=== PATIENT | female | born 1965 | race Caucasian/White ===

== ENCOUNTER 2022-07-20 07:34 | Outpatient (REF) | payer OTHER, SELFPAY ==
[2022-07-20 13:48] LABS: MANUAL DIFF FLAG NO
[2022-07-20 13:53] LABS: Basophils Percent Auto 0.5 % (0-2); Eosinophils Percent Auto 0.7 % (0-4); Hematocrit 35.7 % (37.0-47.0); Hemoglobin 12.1 g/dl (12.0-16.0); Imm Gran Abs Auto 0.01 X10*3/uL (0.00-0.03); Imm Gran Pct Auto 0.2 % (0.0-0.4); Lymphocytes Absolute Auto 2.1 X10*3/uL (1.2-4.9); Lymphocytes Percent Auto 37.6 % (20-40); Mean Corpuscular HGB Conc 33.9 g/dl (31.0-35.0); Mean Corpuscular Hemoglobin 29.6 pg (27.0-33.0); Mean Corpuscular Volume 87.3 fL (80.0-98.0); Mean Platelet Volume 9.2 fL (9.4-12.3); Monocytes Absolute Auto 0.4 X10*3/uL (0.1-1.2); Platelet Count 327 X10*3/uL (160-400); Red Blood Count 4.09 X10*6/uL (4.20-5.50); Red Cell Distribution Width 11.8 % (11.0-16.0); White Blood Count 5.6 X10*3/uL (4.8-10.8)
[2022-07-20 14:09] LABS: Iron 82 mcg/dL (30-160); Percent Iron Saturation 22 % (15-50); Total Iron Binding Capacity 366 mcg/dL (228-428); Unsaturated Iron Binding 284 ug/dL
[2022-07-20 14:11] LABS: Estimated Average Glucose 100 mg/dL; Hemoglobin A1c % 5.1 %
[2022-07-20 14:30] LABS: Ferritin 56 ng/mL (10-250); TSH reflex Free T4 0.05 uIU/mL (0.32-4.0)
[2022-07-20 15:02] LABS: Folate > 20.0 ng/mL (> or = 4.0); Vitamin B12 459 pg/mL (200-900)
[2022-07-20 15:08] LABS: Free T4 (Free Thyroxine) 1.49 ng/dL (0.71-1.85)
== END 2022-07-20 07:35 | disposition home or self-care (01) ==
LOC: HO.LAB 07:34
PROVIDERS: PCP Physician Assistant; Visit Provider Physician Assistant
DX: R23.3 Spontaneous ecchymoses (principal); E03.9 Hypothyroidism, unspecified; Z68.33 Body mass index [BMI] 33.0-33.9, adult
CPT/HCPCS: 36415; 82607; 82728; 82746; 83036; 83540; 84439; 84443; 85025

== ENCOUNTER 2023-03-09 07:39 | Outpatient (REF) | payer OTHER, SELFPAY ==
[2023-03-09 08:08] LABS: MANUAL DIFF FLAG NO
[2023-03-09 08:18] LABS: Basophils Percent Auto 0.8 % (0-2); Eosinophils Absolute Auto 0.1 X10*3/uL (0.0-0.4); Eosinophils Percent Auto 2.4 % (0-4); Hematocrit 37.6 % (37.0-47.0); Hemoglobin 12.6 g/dl (12.0-16.0); Imm Gran Abs Auto 0.01 X10*3/uL (0.00-0.03); Imm Gran Pct Auto 0.2 % (0.0-0.4); Lymphocytes Absolute Auto 1.7 X10*3/uL (1.2-4.9); Lymphocytes Percent Auto 32.5 % (20-40); Mean Corpuscular HGB Conc 33.5 g/dl (31.0-35.0); Mean Corpuscular Hemoglobin 31.3 pg (27.0-33.0); Mean Corpuscular Volume 93.3 fL (80.0-98.0); Mean Platelet Volume 9.7 fL (9.4-12.3); Monocytes Absolute Auto 0.4 X10*3/uL (0.1-1.2); Monocytes Percent Auto 8.3 % (2-11); Neutrophils Percent Auto 55.8 % (45-73); Platelet Count 285 X10*3/uL (160-400); Red Blood Count 4.03 X10*6/uL (4.20-5.50); Red Cell Distribution Width 12.4 % (11.0-16.0); White Blood Count 5.3 X10*3/uL (4.8-10.8)
[2023-03-09 08:54] LABS: Erythrocyte Sedimentation Rate 10 MM/HR (0-20)
[2023-03-09 09:09] LABS: Folate > 20.0 ng/mL (> or = 4.0); Vitamin B12 694 pg/mL (200-900)
[2023-03-09 10:57] LABS: Alanine Aminotransferase 17 U/L (0-31); Albumin Level 4.2 g/dL (3.5-5.0); Alkaline Phosphatase 78 U/L (39-117); Amylase 50 U/L (28-100); Anion Gap 11 (12-20); Aspartate Amino Transferase 20 U/L (5-31); Bilirubin Total 0.5 mg/dL (0.0-1.0); Blood Urea Nitrogen 12 mg/dL (9-16); Calcium 9.9 mg/dL (8.4-10.2); Carbon Dioxide 31 mmol/L (22-29); Chloride 101 mmol/L (96-108); Cholesterol 198 mg/dL; Estimated Glomerular Filt Rate > 60; Ferritin 370 ng/mL (10-250); Glucose Random 54 mg/dL (60-115); HDL Cholesterol 63 mg/dL; Iron 92 mcg/dL (30-160); LDL Cholesterol Calculated 118 mg/dl; Lipase 15 U/L (8-78); Percent Iron Saturation 34 % (15-50); Potassium 4.1 mmol/L (3.3-5.1); Sodium 139 mmol/L (135-145); TSH reflex Free T4 1.51 uIU/mL (0.32-4.0); Total Iron Binding Capacity 269 mcg/dL (228-428); Total Protein 6.9 g/dL (6.5-8.0); Triglycerides 86 mg/dL; Unsaturated Iron Binding 177 ug/dL; Vitamin D 25-OH Total 42.6 ng/mL (>30)
== END 2023-03-09 07:40 | disposition home or self-care (01) ==
LOC: HO.LAB 07:39
PROVIDERS: PCP Physician Assistant; Visit Provider Physician Assistant
DX: Z00.00 Encounter for general adult medical examination without abnormal findings (principal); R10.84 Generalized abdominal pain; E55.9 Vitamin D deficiency, unspecified; E03.9 Hypothyroidism, unspecified; D50.9 Iron deficiency anemia, unspecified; D51.8 Other vitamin B12 deficiency anemias
CPT/HCPCS: 36415; 80053; 80061; 82150; 82306; 82607; 82728; 82746; 83540; 83690; 84443; 85025; 85652; 86140

== ENCOUNTER 2023-04-05 09:02 | Outpatient (AMB) | payer OTHER, SELFPAY ==
--- OUTSIDE RECORDS SUMMARY | 2023-04-05 09:03 | XMS_ITS | Continuity of Care Document ---
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 Name Role Phone Anita Tee Primary Care Physician [phone] Encounter [facility] [place](s): 10/25/22 - 10/25/[address] [address]- Discharge Disposition: A-D/C Home Attending Physician: Tim Gale MD Admitting Physician: Tim Gale MD Referring Physician: Tim Gale MD Allergies, Adverse Reactions, Alerts Substance Reaction Severity Status lisinopril 1 Intestinal Edema Active Bee Stings Anaphylaxis Active Latex Hives Active morphine vomiting Active Dilaudid vomitting Active Chocolate hives Active 1Patient told to never to take again per GI doctor; medication caused some kind of stomach reactionconfirmed with blood tests Medications AutoCPAP 6-10 with heated humidification AutoCPAP 6-10 with heated humidification, See Instructions, # 1 each, Refills 0, Tot. Refills 0, Maintenance, use overnight and naps Supplies from [facility], 06/29/22 14:32:00 EDT, Compound Start Date: 06/29/22 Status: Ordered CeleBREX 200 mg oral capsule 1 capsule = 200 mg, By Mouth, Daily, # 30 capsule, 0 Refills, Maintenance, 01/19/22 15:53:00 EDT, Capsule, Partial fill upon patient request if the prescription is for a schedule II opioid drug. Start Date: 01/19/22 Status: Ordered EpiPen 2-Chinedu 0.3 mg injectable kit See Instructions, Intramuscular Once, # 1 each, 1 Refills, Maintenance Start Date: 05/19/11 Status: Ordered hydrochlorothiazide 25 mg oral tablet 25 mg, 1, tablet, By Mouth, Daily, Refills 0, Maintenance, 01/19/22 15:54:00 EDT, Partial fill uponpatient request if the prescription is for a schedule II opioid drug. Start Date: 01/19/22 Status: Ordered levothyroxine 150 mcg (0.15 mg) oral tablet By Mouth, Daily, 0 Refills, Maintenance, 11/29/13 10:06:30, Tablet Start Date: 11/29/13 Status: Ordered melatonin 3 mg oral tablet 1 tablet = 3 mg, By Mouth, Daily at bedtime, PRN for insomnia, # 60 tablet, 0 Refills, Maintenance,Tablet Start Date: 03/04/12 Status: Ordered montelukast 10 mg oral tablet 10 mg, 1, tablet, By Mouth, Daily in PM, # 30 tablet, Refills 0, Maintenance, 01/19/22 15:52:00 EDT, Partial fill upon patient request if the prescription is for a schedule II opioid drug. Start Date: 01/19/22 Status: Ordered multivitamin with minerals Multiple Vitamins with Minerals oral tablet, chewable See Instructions, 1 tablet By Mouth BID, # 60 capsule, 11 Refills Start Date: 09/22/09 Stop Date: 10/22/09 Status: Ordered omeprazole 20 mg oral delayed release tablet 1 tablet = 20 mg, By Mouth, Daily, # 30 tablet, 0 Refills, Maintenance, 06/29/22 14:31:00 EDT, CR Tablet, Partial fill upon patient request if the prescription is for a schedule II opioid drug. Start Date: 06/29/22 Status: Ordered Yuvafem 10 mcg vaginal tablet 1 tablet = 10 mcg, Vaginally, Daily at bedtime, 0 Refills, Maintenance, 10/04/18 8:17:49 EST Start Date: 10/04/18 Status: Ordered Problem List Condition Confirmation Course Effective Dates Status H ealt Status Informant GERD (gastroesophageal reflux disease) Confirmed Active Lipodystrophy Confirmed Active Obesity Confirmed Active SAQIB (obstructive sleep apnea) Confirmed Active Prolapsed cervical intervertebral disc Confirmed Active Restless leg syndrome Confirmed Active Vital Signs Most recent to oldest [Reference Range]: 1 2 3 Height 166 cm (10/25/22 7:39 AM) Oxygen Saturation [94-100 %] 98 % (10/25/22 9:06 AM) 100 % (10/25/22 9:00 AM) 99 % (10/25/22 8:57 AM) Pulse Rate [55-90 bpm] 59 bpm (10/25/22 7:39 AM) Blood Pressure [90-138/55-84 mm Hg] 126/74mm Hg (10/25/22 9:06 AM) 124/74mm Hg (10/25/22 9:00 AM) 121/68mm Hg (10/25/22 8:57 AM) Respiratory Rate [16-30 br/min] 16 br/min (10/25/22 9:06 AM) 13 br/min *L* (10/25/22 9:00 AM) 13 br/min *L* (10/25/22 8:57 AM) Temperature [96.8-100.4 DegF] 97.3 DegF (10/25/22 7:39 AM) Mode of Delivery (Oxygen) Room air (10/25/22 9:06 AM) Room air (10/25/22 9:00 AM) Room air (10/25/22 8:57 AM) Blood pressure sites Arm, left (10/25/22 9:06 AM) Arm, left (10/25/22 9:00 AM) Arm, left (10/25/22 8:57 AM) Temperature Route Temporal (10/25/22 7:39 AM) Dry Weight 82 kg (10/25/22 7:39 AM) Dry Weight Obtained Via Patient/family s tated (10/25/22 7:39 AM) Social History Social History Type Response Smoking Status Never (less than 100 in lifetime); Tobacco user in household: No entered on: 10/04/18 Sex Note * Lakeisha Bonds RN: PERFORM Event Display: Discharge/Transfer Note Hospital Authored Date: [id number] Nursing Discharge Note Entered On: 10/25/2022 8:59 EST Performed On: 10/25/2022 8:59 EST by Lakeisha Bonds RN Nursing Discharge Note 2 Discharge Time : 10/25/2022 9:23 EST Lakeisha Bonds RN - 10/25/2022 9:26 EST Discharge Level of Care at Discharge : Home/Detention/Foster Care Patient Left Unit Via : Wheelchair Patient Accompanied Off Unit with : Responsible adult DC Instructions Provided & Signed by Pt : Yes Patient Understands D/C Instructions : Yes Patient Instructions Discharge Signed : Yes Did Pt have Specialty Bed or Wound Vac : No Lakeisha Bonds RN - 10/25/2022 8:59 EST * Lakeisha Bonds RN: PERFORM Event Display: Patient Education/Instruction Authored Date: [id number] Inpatient Adult Discharge Instructions [address] [address] Name: BRIDGETT MORE : 1965 Visit: 10/25/2022 07:25:00 Current Date: 10/25/2022 09:00 Account: [id number] Inpatient Adult Discharge Instructions We would like to thank you for allowing us to assist you with your healthcare needs. The following includes patient education materials and information regarding your injury/illness. Our entire staffstrives to provide an excellent experience for our patients and their families. PLEASE ENSURE YOU FOLLOW-UP PER THE INSTRUCTIONS BELOW! ?? YOUR OPINION IS IMPORTANT TO US! Please complete the survey you may receive by mail or email. Your feedback will be used to make improvements to the healthcare experiences of our patients and their families. Surveys are administered by [employer] ?? If further treatment with your primary care physician or another doctor is recommended, it is important for you to keep the appointment. Call your primary care physician or return to the Emergency Department immediately if your condition worsens, fails to improve, or new symptoms develop. If you need to find a doctor, you can call [facility] [facility] for a referral at [phone] or toll free at [phone] or log in to [email or web address].. ?? You can view and manage your care through the patient portal or by using a health care mario of your choosing. [employer] is a website that allows you to securely view your medical information including your hospital discharge summary, office visit summaries, medications and follow-up visits. You can also request appointments, renew medications, and request access to your medical information using a health care mario of your choosing, or just ask a question. You can enroll at [email or web address] or register during your next office visit. You have been discharged from [facility], Patient Care Unit: ENDO. If you have any questions regarding these instructions after you leave, please call us and we will be happy to assist you. [facility] Your Care Team Attending Physician Shahla MOSHER, Tim Snider Discharging Providers Shahla MOSHER, Tim Snider Reason for Admission RECTAL BLEEDING GERD Tests Performed Below is a partial list of the tests performed during your hospitalization. You may have had other tests and procedures not included in this list. Please discuss all test results with your provider. Primary Care Provider Anita Tee Advance Directive Health Care Proxy on File No Patient refuses to discuss Discharge Vitals Temperature: 97.3 DegF Height: 166 cm Pulse Rate: 59 bpm ?? Respiratory Rate:??13 br/min??Low ?? Systolic Blood Pressure: 121 mm Hg ?? Diastolic Blood Pressure: 68 mm Hg ?? Oxygen Saturation: 99 % ?? Studies Pending All tests and labs ordered during this hospital stay have been completed unless listed below. Please discuss all pending results with your provider listed above in these instructions. ?? No incomplete studies found What to do next Instructions From Your Doctor Discharge Orders You Need to Schedule the Following Appointments Follow Up with??Follow up with primary care physician as needed When?? Follow Up with??Anita Carlton When??In 0 days Where: [address] [place] [phone]- Business (1) Discharge Medications BRIDGETT JEFF :1965 Visit Date:10/25/2022 Medications: Please continue your medications until treatment is completed or stopped by your provider. Medications not listed below should be discontinued. Discuss any questions related to medications with your provider. What How Much When Instructions Next Dose Unchanged Celecoxib (CeleBREX 200 mg oral capsule) 1 capsule Oral Daily Unchanged Durable Medical Equipment (AutoCPAP 6-10 with heated humidification) See Instructions use overnight and naps Supplies from [facility] ?? Unchanged Epinephrine (EpiPen 2-Chinedu 0.3 mg injectable kit) See instructions Intramuscular Once ?? Unchanged Estradiol Topical (Yuvafem 10 mcg vaginal tablet) 1 tab(s) Vaginally Daily at Bedtime Unchanged Hydrochlorothiazide (hydrochlorothiazide 25 mg oral tablet) 1 tab(s) Oral Daily Unchanged Levothyroxine (levothyroxine 150 mcg (0.15 mg) oral tablet) Oral Daily Unchanged Melatonin (melatonin 3 mg oral tablet) 1 tab(s) Oral Daily at Bedtime as needed for for insomnia Unchanged Montelukast (montelukast 10 mg oral tablet) 1 tab(s) Oral Daily in PM Unchanged Multivitamin With Minerals (multivitamin with minerals Multiple Vitamins with Minerals oral tablet, chewable) See Instructions 1 tablet By Mouth BID ?? Unchanged Omeprazole (omeprazole 20 mg oral delayed release tablet) 1 tab(s) Oral Daily Test Results Below is a partial list of the most recent Laboratory test results done prior to this discharge. You may have had other tests and procedures not included in this list. Please discuss all test resultswith your provider. Allergies (NKA means No Known Allergies) Bee Stings??(Anaphylaxis) Chocolate??(hives) Dilaudid??(vomitting) Latex??(Hives) lisinopril??(Intestinal Edema) morphine??(vomiting) Problems Active Problems??(11) DJD/OA?? GERD?? GERD (gastroesophageal reflux disease)?? HTN?? Lipodystrophy?? Morbid obesity?? Obesity?? SAQIB?? SAQIB (obstructive sleep apnea)?? Prolapsed cervical intervertebral disc?? Restless leg syndrome?? Education Materials Below is the list of Educational Leaflet Providered with your Discharge Instructions. Hemorrhoids Discharge Instructions?? Valuables and Belongings I fully understand and agree that [facility] accepts no responsibility for all my personal property including clothing, toilet articles, radios, jewelry, dentures, hearing aids, rings, money, or any other property that is in my possession or is brought to me after admission. I understand certain valuables may be placed in a hospital safe for a short period of time. I understand that the hospital is not liable for loss or damage due to accident, fire, or other natural occurrence while said property is in the safe. I accept full responsibility for any personal property that I keep with me, and will not hold the hospital responsible in case of loss or disappearance. I acknowledge that i have been encouraged to send valuables and belongings home. ?? Date for Pt to Sign Valuables/Belongings: 10/25/22 07:42:00 ?? Valuables & Belongings ?? Clothes Electronic devices Jewelry Monetary Items Personal devices Miscellaneous Medications (Valuables) Valuables at Bedside ? Glasses ? Valuables Sent Home ? Valuables Sent to Security ? Other Discharge Information ? Case Management Discharge Plan?? Discharge Plan?? Discharge Level of Care at Discharge: Home/Detention/Foster Care ?? Pulmonary Rehab Status?? Pulmonary Rehab Discharge Status?? Respiratory Rate:??13 br/min??Low ? Common Emergency Awareness Tips IS IT A STROKE? Act FAST and Check for these signs: FACE Does the face look uneven? ARM Does one arm drift down? SPEECH Does their speech sound strange? TIME Call at any sign of stroke ?? Heart Attack Signs Chest discomfort: Most heart attacks involve discomfort in the center of the chest and lasts more than a few minutes, or goes away and comes back. It can feel like uncomfortable pressure, squeezing, fullness or pain. Discomfort in upper body: Symptoms can include pain or discomfort in one or both arms, back, neck, jaw or stomach. Shortness of breath: With or without discomfort. Other signs: Breaking out in a cold sweat, nausea, or lightheaded. Remember, MINUTES DO MATTER. If you experience any of these heart attack warning signs, call to get immediate medical attention! ?? Smoking can increase your chances of developing chronic health problems and can cause harmful effects to other family members in your house. If you smoke, you are strongly encouraged to quit. Please call [facility] Link at [phone] or [phone]) or log in to [email or web address] for referrals to smoking cessation programs. ?? The National Suicide Prevention Hotline is available 16/04 if you or someone you know needs to find a reason to keep living. By calling 5-339-729-[employer] (4044) you'll be connected to a skilled, trained counselor at a crisis center in your area. INPATIENT DISCHARGE INSTRUCTIONS SIGNATURE PAGE BRIDGETT JEFF Location:[facility] Registration Date and Time:10/25/2022 07:25 EST Primary Care Physician: Anita Tee, I BRIDGETT JEFF, have received the above patient education materials/instructions and have verbalized understanding. If ambulance or transport services are being used I further acknowledge being given a choice of service. ?? If you need to contact me, please call me at this number: . Patient/Dry Folder Cloth Name: Patient/Dry Folder Cloth Signature: Relationship to Patient: Witness Name/Signature: Date: * Lakeisha Bonds RN: PERFORM Event Display: Patient Education/Instruction Authored Date: [id number] Inpatient Adult Discharge Instructions [address] [address] Name: BRIDGETT MORE : 1965 Visit: 10/25/2022 07:25:00 Current Date: 10/25/2022 09:00 Account: [id number] Inpatient Adult Discharge Instructions We would like to thank you for allowing us to assist you with your healthcare needs. The following includes patient education materials and information regarding your injury/illness. Our entire staffstrives to provide an excellent experience for our patients and their families. PLEASE ENSURE YOU FOLLOW-UP PER THE INSTRUCTIONS BELOW! ?? YOUR OPINION IS IMPORTANT TO US! Please complete the survey you may receive by mail or email. Your feedback will be used to make improvements to the healthcare experiences of our patients and their families. Surveys are administered by [employer] ?? If further treatment with your primary care physician or another doctor is recommended, it is important for you to keep the appointment. Call your primary care physician or return to the Emergency Department immediately if your condition worsens, fails to improve, or new symptoms develop. If you need to find a doctor, you can call [email or web address].org for a referral at [phone] or toll free at [phone]) or log in to [email or web address].. ?? You can view and manage your care through the patient portal or by using a health care mario of your choosing. [employer] is a website that allows you to securely view your medical information including your hospital discharge summary, office visit summaries, medications and follow-up visits. You can also request appointments, renew medications, and request access to your medical information using a health care mario of your choosing, or just ask a question. You can enroll at [email or web address] or register during your next office visit. You have been discharged from [facility], Patient Care Unit: ENDO. If you have any questions regarding these instructions after you leave, please call us and we will be happy to assist you. [facility] Your Care Team Attending Physician Tim Gale MD Discharging Providers Shahla MOSHER, Tim Snider Reason for Admission RECTAL BLEEDING GERD Tests Performed Below is a partial list of the tests performed during your hospitalization. You may have had other tests and procedures not included in this list. Please discuss all test results with your provider. Primary Care Provider Ainta Tee Advance Directive Health Care Proxy on File No Patient refuses to discuss Discharge Vitals Temperature: 97.3 DegF Height: 166 cm Pulse Rate: 59 bpm ?? Respiratory Rate:??13 br/min??Low ?? Systolic Blood Pressure: 121 mm Hg ?? Diastolic Blood Pressure: 68 mm Hg ?? Oxygen Saturation: 99 % ?? Studies Pending All tests and labs ordered during this hospital stay have been completed unless listed below. Please discuss all pending results with your provider listed above in these instructions. ?? No incomplete studies found What to do next Instructions From Your Doctor Discharge Orders You Need to Schedule the Following Appointments Follow Up with??Follow up with primary care physician as needed When?? Follow Up with??Anita Carlton When??In 0 days Where: [address] [place], [place] [id number] [facility] (1) Discharge Medications BRIDGETT JEFF :1965 Visit Date:10/25/2022 Medications: Please continue your medications until treatment is completed or stopped by your provider. Medications not listed below should be discontinued. Discuss any questions related to medications with your provider. What How Much When Instructions Next Dose Unchanged Celecoxib (CeleBREX 200 mg oral capsule) 1 capsule Oral Daily Unchanged Durable Medical Equipment (AutoCPAP 6-10 with heated humidification) See Instructions use overnight and naps Supplies from [facility] ?? Unchanged Epinephrine (EpiPen 2-Chinedu 0.3 mg injectable kit) See instructions Intramuscular Once ?? Unchanged Estradiol Topical (Yuvafem 10 mcg vaginal tablet) 1 tab(s) Vaginally Daily at Bedtime Unchanged Hydrochlorothiazide (hydrochlorothiazide 25 mg oral tablet) 1 tab(s) Oral Daily Unchanged Levothyroxine (levothyroxine 150 mcg (0.15 mg) oral tablet) Oral Daily Unchanged Melatonin (melatonin 3 mg oral tablet) 1 tab(s) Oral Daily at Bedtime as needed for for insomnia Unchanged Montelukast (montelukast 10 mg oral tablet) 1 tab(s) Oral Daily in PM Unchanged Multivitamin With Minerals (multivitamin with minerals Multiple Vitamins with Minerals oral tablet, chewable) See Instructions 1 tablet By Mouth BID ?? Unchanged Omeprazole (omeprazole 20 mg oral delayed release tablet) 1 tab(s) Oral Daily Test Results Below is a partial list of the most recent Laboratory test results done prior to this discharge. You may have had other tests and procedures not included in this list. Please discuss all test resultswith your provider. Allergies (NKA means No Known Allergies) Bee Stings??(Anaphylaxis) Chocolate??(hives) Dilaudid??(vomitting) Latex??(Hives) lisinopril??(Intestinal Edema) morphine??(vomiting) Problems Active Problems??(11) DJD/OA?? GERD?? GERD (gastroesophageal reflux disease)?? HTN?? Lipodystrophy?? Morbid obesity?? Obesity?? SAQIB?? SAQIB (obstructive sleep apnea)?? Prolapsed cervical intervertebral disc?? Restless leg syndrome?? Education Materials Below is the list of Educational Leaflet Providered with your Discharge Instructions. Valuables and Belongings I fully understand and agree that [facility] accepts no responsibility for all my personal property including clothing, toilet articles, radios, jewelry, dentures, hearing aids, rings, money, or any other property that is in my possession or is brought to me after admission. I understand certain valuables may be placed in a hospital safe for a short period of time. I understand that the hospital is not liable for loss or damage due to accident, fire, or other natural occurrence while said property is in the safe. I accept full responsibility for any personal property that I keep with me, and will not hold the hospital responsible in case of loss or disappearance. I acknowledge that i have been encouraged to send valuables and belongings home. ?? Date for Pt to Sign Valuables/Belongings: 10/25/22 07:42:00 ?? Valuables & Belongings ?? Clothes Electronic devices Jewelry Monetary Items Personal devices Miscellaneous Medications (Valuables) Valuables at Bedside ? Glasses ? Valuables Sent Home ? Valuables Sent to Security ? Other Discharge Information ? Case Management Discharge Plan?? Discharge Plan?? Discharge Level of Care at Discharge: Home/Detention/Foster Care ?? Pulmonary Rehab Status?? Pulmonary Rehab Discharge Status?? Respiratory Rate:??13 br/min??Low ? Common Emergency Awareness Tips IS IT A STROKE? Act FAST and Check for these signs: FACE Does the face look uneven? ARM Does one arm drift down? SPEECH Does their speech sound strange? TIME Call at any sign of stroke ?? Heart Attack Signs Chest discomfort: Most heart attacks involve discomfort in the center of the chest and lasts more than a few minutes, or goes away and comes back. It can feel like uncomfortable pressure, squeezing, fullness or pain. Discomfort in upper body: Symptoms can include pain or discomfort in one or both arms, back, neck, jaw or stomach. Shortness of breath: With or without discomfort. Other signs: Breaking out in a cold sweat, nausea, or lightheaded. Remember, MINUTES DO MATTER. If you experience any of these heart attack warning signs, call to get immediate medical attention! ?? Smoking can increase your chances of developing chronic health problems and can cause harmful effects to other family members in your house. If you smoke, you are strongly encouraged to quit. Please call [facility] [facility] Link at [phone] or [phone] ([phone]) or log in to [email or web address] for referrals to smoking cessation programs. ?? The National Suicide Prevention Hotline is available 16/04 if you or someone you know needs to find a reason to keep living. By calling 8-741-550-[employer] (1456) you'll be connected to a skilled, trained counselor at a crisis center in your area. INPATIENT DISCHARGE INSTRUCTIONS SIGNATURE PAGE LUCINA JEFFN Location:[facility] Registration Date and Time:10/25/2022 07:25 EST Primary Care Physician: Anita Tee, I BRIDGETT JEFF, have received the above patient education materials/instructions and have verbalized understanding. If ambulance or transport services are being used I further acknowledge being given a choice of service. ?? If you need to contact me, please call me at this number: . Patient/Dry Folder Cloth Name: Patient/Dry Folder Cloth Signature: Relationship to Patient: Witness Name/Signature: Date: * Lakeisha Bonds RN: PERFORM, SIGN, VERIFY Event Display: Patient Education Handout Authored Date: [id number] * Lakeisha Bonds RN: PERFORM Event Display: Patient Education Leaflets Authored Date: [id number] Hemorrhoids Discharge Instructions ?? 672 ??Hemorrhoids Discharge Instructions ??You must carefully read the Consumer Information Use and Disclaimer below in order to understand and correctly use this information?? About this topic Hemorrhoids are swollen veins in the rectum. Your rectum is where stool leaves your body. You may be able to see or feel your hemorrhoids outside of your body, but some hemorrhoids are inside of yourrectum and cannot be seen. Hemorrhoids can cause itching, pain, and bleeding. Being constipated or having hard stools can make your hemorrhoids worse.?? What care is needed at home? Ask your doctor what you need to do when you go home. Make sure??you ask questions if you do not understand what the doctor says. This??way you will know what you need to do. ??? Soak your bottomin a few inches of warm water for 10 to 15 minutes??at a time. You can do this 2 to 3 times each day. Do not add soap,??bubble bath, or anything to the water. ??? Use zwpb-ist-jwpizoz medicines to treat your hemorrhoids. These??include ointments and creams to help with pain and swelling. You can??also use a product like witch robert to help dry out the skin in the area. ??? To help with constipation: ??? Use stool softeners when needed. ??? Eat high-fiber foods. These include whole grains, fruits, and??vegetables. ??? Drink plenty of water and other fluids each day. This helps to??keep your stools soft. ??? Set a regular schedule to try and have a bowel movement. Do??not ignore the urge to go to the bathroom. Don???t hold it in. ??? Give yourself plenty of time to have a bowel movement, but do not linger on the toilet either, by sitting and reading for a long time. ??? Do mild exercise each day like taking a walk. ??? Avoid heavy lifting or straining while the hemorrhoid is healing. ?? What follow-up care is needed? If your problem does not get better, other care may be needed. Your doctor may ask you to make visits to the office to check on your progress. Be sure to keep these visits.?? What drugs may be needed? The doctor may order drugs to: ??? Help with pain and swelling ??? Ease itching ??? Soften stools ?? Will physical activity be limited? Working out can help with digestion. It might help keep you from having hard stools. Ask your doctor about the best kind of exercise for you. ?? What problems could happen? You may have very bad bleeding. ??? Sometimes, treatments do not work. Some hemorrhoids are very??large. You might need surgery for either of these. ?? When do I need to call the doctor? You have a lot of bleeding from your rectum. ??? Your bowel movement looks like tar. ??? You are not able to pass stool because of pain from your??hemorrhoids. ??? Your pain gets worse and is nothelped by ogkh-ebg-gimvwok??medicines, warm water, or your home care. ??? You have a fever of 100.4??F (38??C) or higher. ?? Teach Back: Helping You Understand The Teach Back Method helps you understand the information we are giving you. After you talk with the staff, tell them in your own words what you learned. This helps to make sure the staff has described each thing clearly. It also helps to explain things that may have been confusing. Before going home, make sure you can do these: ??? I can tell you about my condition. ??? I can tell you what may help ease my pain. ??? I can tell you what I will do if I have blood in my rectum. Where can I learn more?[employer]https://familydoctor.or g/condition/hemorrhoids/National Digestive Disease Information Clearinghousehttps://www.niddk.nih.go v/health-information/digestive-diseases/hemorrhoids/definition-factsLast Reviewed [id number] Information Use and Disclaimer:This generalized information is a limited summary of diagnosis,treatment, and/or medication information. It is not meant to be comprehensive and should be used asa tool to help the user understand and/or assess potential diagnostic and treatment options. It does NOT include all information about conditions, treatments, medications, side effects, or risks thatmay apply to a specific patient. It is not intended to be medical advice or a substitute for the medical advice, diagnosis, or treatment of a health care provider based on the health care provider's examination and assessment of a patient???s specific and unique circumstances. Patients must speak with a health care provider for complete information about their health, medical questions, and treatment options, including any risks or benefits regarding use of medications. This information does not endorse any treatments or medications as safe, effective, or approved for treating a specific patient. [employer] and its affiliates disclaim any warranty or liability relating to this information or the use thereof. The use of this information is governed by the Terms of Use, available at??htt ps://www.[employer].com/en/know/bauhlyil-ftwylflaxmrhy-tjmenKmgy Updated 11/16/21? Patient Care team information Care Team Personnel Name: Shea Luna RN Position: [facility] RN Member Role: Primary Care Nurse Name: Kristin Galloway RN Position: [facility] RN Member Role: Primary Care Nurse Name: Radha Cleary RN Position: [facility] RN Member Role: Primary Care Nurse Name: Anita Tee Position: Reference Physician Member Role: PCP Address: Address: [address] [place] [id number] Name: Leon Adams RN Position: [facility] [employer] Member Role: Primary Care Nurse Care Team Related Persons Name: GLENYS LOZANO Address: [place] [address] Name: RAQUEL MORE Address: home [address] [place] [id number]
--- OUTSIDE RECORDS SUMMARY | 2023-04-05 09:03 | XMS_ITS | Continuity of Care Document ---
Author Name Unknown Organization [facility] Address [address] [place] [id number]- Care Team Providers Care Gm Video Name Role Phone Anita Tee Primary Care Physician Encounter [facility] Date(s): 02/24/22 - 03/26/[address] [address] Allergies, Adverse Reactions, Alerts Substance Reaction Severity Status Chocolate hives Active Latex Hives Active morphine vomiting Active lisinopril 1 Intestinal Edema Active Bee Stings Anaphylaxis Active Dilaudid vomitting Active 1Patient told to never to take again per GI doctor; medication caused some kind of stomach reactionconfirmed with blood tests Medications CeleBREX 200 mg oral capsule 1 capsule = 200 mg, By Mouth, Daily, # 30 capsule, 0 Refills, Maintenance, 01/19/22 15:53:00 EDT, Capsule, Partial fill upon patient request if the prescription is for a schedule II opioid drug. Start Date: 01/19/22 Status: Ordered cholestyramine 4 g/5.5 g oral powder for reconstitution = 4 Gm, By Mouth, 2 times a day, # 60 each, 1 Refills, Maintenance, 11/03/18 19:11:05 EST, REC Powder Start Date: 11/03/18 Status: Ordered Diflucan 150 mg oral tablet See Instructions, 1 tablet By Mouth Daily x 2 days, # 2 tablet, 0 Refills, Soft Stop, 07/07/15 16:46:48, Tablet, 1 tablet By Mouth Daily x 2 days Start Date: 07/07/15 Status: Ordered EpiPen 2-Chinedu 0.3 mg injectable kit See Instructions, Intramuscular Once, # 1 each, 1 Refills, Maintenance Start Date: 05/19/11 Status: Ordered ferrous sulfate 325 mg oral enteric coated tablet 325 mg, 1, tablet, By Mouth, Daily, may take with food to minimize abdominal discomfort, # 60 tablet, Refills 5, Tot. Refills 5, Maintenance, 01/19/22 15:30:00 EDT, Route to Pharmacy Electronically, [facility]/pharmacy #[id number], Partial fill upon patient reques... Start Date: 01/19/22 Status: Ordered hydrochlorothiazide 25 mg oral tablet 25 mg, 1, tablet, By Mouth, Daily, Refills 0, Maintenance, 01/19/22 15:54:00 EDT, Partial fill uponpatient request if the prescription is for a schedule II opioid drug. Start Date: 01/19/22 Status: Ordered ibuprofen 600 mg oral tablet 1 tablet = 600 mg, By Mouth, Every 8 hours, with food or milk, # 90 tablet, 6 Refills, Maintenance,Tablet Start Date: 10/24/11 Status: Ordered ipratropium nasal 21 mcg/inh spray See Instructions, PRN Nasal Congestion, 1 spray each nostril BID, # 1 each, 4 Refills, Maintenance,01/19/22 15:15:00 EDT, [facility]/pharmacy #[id number], Partial fill upon patient request if the prescription isfor a schedule II opioid drug., 1 spray each nostri... Start Date: 01/19/22 Status: Ordered levothyroxine 150 [...] 09/22/09 Stop Date: 10/22/09 Status: Ordered omeprazole 40 mg oral enteric coated capsule 1 capsule = 40 mg, By Mouth, Daily, 0 Refills Start Date: 08/31/09 Status: Ordered oxybutynin 10 mg/24 hr oral tablet, extended release 1 tablet = 10 mg, By Mouth, Daily, 0 Refills, Maintenance, 10/04/18 8:16:17 EST Start Date: 10/04/18 Status: Ordered Yuvafem 10 mcg vaginal tablet 1 tablet = 10 mcg, Vaginally, Daily at bedtime, 0 Refills, Maintenance, 10/04/18 8:17:49 EST Start Date: 10/04/18 Status: Ordered Problem List Condition Effective Dates Status Health Status Inform ant GERD (gastroesophageal reflu x disease)(Confirmed) Active Lipodystrophy(Confirmed) Active Obesity(Confirmed) Active SAQIB (obstructive sleep apnea)(Confirmed) Active Prolapsed cervical intervert ebral disc(Confirmed) Active Restless leg syndrome(Confirmed) Active Social History Social History Type Response Smoking Status Never (less than 100 in lifetime); Tobacco user in household: No entered on: 10/04/18 Sex
--- OUTSIDE RECORDS SUMMARY | 2023-04-05 09:03 | XMS_ITS | Continuity of Care Document ---
Author Name Unknown Organization [facility] Address [address] [place] [address]- Care Team Providers Care Director Product Name Role Phone Anita Tee Primary Care Physician [phone] [id number] Date(s): 03/02/21 - 04/01/[address] [address] Attending Physician: Alex Liu Admitting Physician: AdmtrAlex Referring Physician: Admtr, Ar8 Allergies, Adverse Reactions, Alerts Substance Reaction Severity Status Latex Hives Active morphine vomiting Active lisinopril 1 Intestinal Edema Active Bee Stings Anaphylaxis Active Dilaudid vomitting Active Chocolate hives Active 1Patient told to never to take again per GI doctor; medication caused some kind of stomach reactionconfirmed with blood tests Medications amitriptyline 10 mg oral tablet 10 mg, 1, tablet, By Mouth, Daily at bedtime, Refills 0, Maintenance, 10/04/18 8:17:05 EST Start Date: 10/04/18 Status: Ordered amitriptyline 25 mg oral tablet 25 mg, 1, tablet, By Mouth, Daily at bedtime, Refills 0, Maintenance, 10/04/18 8:17:09 EST Start Date: 10/04/18 Status: Ordered amLODIPine 10 mg oral tablet 10 mg, 1, tablet, By Mouth, Daily, Refills 0, Maintenance, 10/04/18 8:16:48 EST Start Date: 10/04/18 Status: Ordered cholestyramine 4 g/5.5 g oral [...] Refills, Maintenance Start Date: 05/19/11 Status: Ordered ibuprofen 600 mg oral tablet 1 tablet = 600 mg, By Mouth, Every 8 hours, with food or milk, # 90 tablet, 6 Refills, Maintenance,Tablet Start Date: 10/24/11 Status: Ordered levothyroxine 150 mcg (0.15 mg) oral tablet By Mouth, Daily, 0 Refills, Maintenance, 11/29/13 10:06:30, Tablet Start Date: 11/29/13 Status: Ordered melatonin 3 mg oral tablet 1 tablet = 3 mg, By Mouth, Daily at bedtime, PRN for insomnia, # 60 tablet, 0 Refills, Maintenance,Tablet Start Date: 03/04/12 Status: Ordered multivitamin with minerals Multiple Vitamins [...] 8:16:17 EST Start Date: 10/04/18 Status: Ordered Readi-Cat 2 oral suspension See Instructions, as per radiology dept, # 2 bottle, 0 Refills, Maintenance, 10/18/18 13:07:46 EST,as per radiology dept Start Date: 10/18/18 Status: Ordered Yuvafem 10 mcg vaginal tablet 1 tablet = 10 mcg, Vaginally, Daily at bedtime, 0 Refills, Maintenance, 10/04/18 8:17:49 EST Start Date: 10/04/18 Status: Ordered Problem List Condition Effective Dates Status Health Status Inform ant Lipodystrophy(Confirmed) Active Prolapsed cervical intervert ebral disc(Confirmed) Active Social History Social History Type Response Smoking Status Never (less than 100 in lifetime); Tobacco user in household: No entered on: 10/04/18 Sex
--- OUTSIDE RECORDS SUMMARY | 2023-04-05 09:03 | XMS_ITS | Continuity of Care Document ---
Author Name Unknown Organization [facility] Address [address] [place] [address]- Care Team Providers Care Director Business Name Role Phone Anita Tee Primary Care Physician [phone] Encounter [facility] Date(s): 01/26/22 - 05/06/[address] [address]- Attending Physician: Caroline Cosby MD Admitting Physician: Caroline Cosby MD Allergies, Adverse Reactions, Alerts Substance Reaction [...] 01/19/22 15:30:00 EDT, Route to Pharmacy Electronically, [facility]/pharmacy #[id number], Partial fill upon patient reques... [...] 1 each, 4 Refills, Maintenance,01/19/22 15:15:00 EDT, [facility]/pharmacy #[id number], Partial fill upon patient request [...]
--- OUTSIDE RECORDS SUMMARY | 2023-04-05 09:03 | XMS_ITS | Continuity of Care Document ---
Author Name Unknown Organization [facility] [place] Address [address] [place] [address]- Care Team Providers Care Curtain Hemmer Automatic Name Role Phone Anita Tee Primary Care Physician [phone] Encounter [facility] Date(s): 01/24/22 - 02/23/22 [facility] [place] [address] [place] [address]- Attending Physician: Alex Liu Admitting Physician: AdmtrAlex [...] 01/19/22 15:30:00 EDT, Route to Pharmacy Electronically, [facility]/pharmacy #[id number], Partial fill upon patient reques... Start [...] 1 each, 4 Refills, Maintenance,01/19/22 15:15:00 EDT, [facility]/pharmacy #[id number], Partial fill upon patient request if [...]
--- OUTSIDE RECORDS SUMMARY | 2023-04-05 09:03 | XMS_ITS | Continuity of Care Document ---
Author Name Unknown Organization [facility] Address [address] [place] [address]- Care Team Providers Care Tong Setter Name Role Phone Anita Tee Primary Care Physician Encounter [facility] Date(s): 08/15/22 - 09/14/[address] [address]- Allergies, Adverse Reactions, Alerts Substance Reaction Severity Status Dilaudid vomitting Active Latex Hives Active morphine vomiting Active lisinopril 1 Intestinal Edema Active Bee Stings Anaphylaxis Active Chocolate hives Active 1Patient told to never to take again per GI doctor; medication caused some kind of stomach reactionconfirmed with blood tests Medications AutoCPAP 6-10 with heated humidification AutoCPAP 6-10 with heated humidification, See Instructions, # 1 each, Refills 0, Tot. Refills 0, Maintenance, use overnight and naps Supplies from [facility], 06/29/22 14:32:00 EDT, Compound Start Date: 06/29/22 [...] for reconstitution = 4 Gm, By Mouth, Daily, # 60 each, 1 Refills, Maintenance, 11/03/18 19:11:05 EST, REC Powder, [facility]acy [facility][id number] Start Date: 11/03/18 Status: Ordered Diflucan 150 [...] opioid drug. Start Date: 01/19/22 Status: Ordered ipratropium nasal 21 mcg/inh spray See Instructions, PRN Nasal Congestion, 1 spray each nostril BID, # 1 each, 4 Refills, Maintenance,01/19/22 15:15:00 EDT, [facility]/pharmacy #[id number], Partial fill upon patient request if [...] opioid drug. Start Date: 06/29/22 Status: Ordered oxybutynin 10 mg/24 hr oral tablet, extended release 1 tablet = 10 mg, By Mouth, Daily, 0 Refills, Maintenance, 10/04/18 8:16:17 EST Start Date: 10/04/18 Status: Ordered Suprep Bowel Prep Kit oral liquid See Instructions, 176mL x 2 per instructions, # 1 kit, 0 Refills, Maintenance, 03/17/22 7:32:00 EDT, [facility]/pharmacy #[id number], Partial fill upon patient request if the prescription is for a schedule II opioid drug., 176mL x 2 per instructions Start Date: 03/17/22 Status: Ordered Yuvafem 10 mcg vaginal tablet 1 tablet = 10 mcg, Vaginally, Daily at bedtime, 0 Refills, Maintenance, 10/04/18 8:17:49 EST Start Date: 10/04/18 Status: Ordered Problem List Condition Confirmation Course Effective Dates Status H ealth Status Informant GERD (gastroesophageal reflux disease) Confirmed Active Lipodystrophy Confirmed Active Obesity Confirmed Active SAQIB (obstructive sleep apnea) Confirmed Active Prolapsed cervical intervertebral disc Confirmed Active Restless leg syndrome Confirmed Active Social History Social History Type Response Smoking Status Never (less than 100 in lifetime); Tobacco user in household: No entered on: 10/04/18 Sex Patient Care team information Care Team Personnel Name: Shea Luna RN Position: [facility] RN Member Role: Primary Care Nurse Name: Kristin Galloway RN Position: [facility] RN Member Role: Primary Care Nurse Name: Radha Cleary RN Position: [facility] RN Member Role: Primary Care Nurse Name: Anita Tee Position: Reference Physician Member Role: PCP Address: Address: [address] [place] [id number]- Name: Leon Adams RN Position: [facility] Hospital Retail Salesman Member Role: Primary Care Nurse Care Team Related Persons Name: GLENYS LOZANO Name: RAQUEL MORE Address: [address] [address]
--- OUTSIDE RECORDS SUMMARY | 2023-04-05 09:03 | XMS_ITS | Continuity of Care Document ---
Author Name Unknown Organization [facility] [place] Address [address] [place] [address]- Care Team Providers Care Authorizer Name Role Phone Anita Tee Primary Care Physician Encounter [facility] Date(s): 03/09/22 - 04/08/22 [facility] [place] [address] [place] [address]- Allergies, Adverse Reactions, Alerts Substance Reaction Severity Status morphine vomiting Active lisinopril 1 Intestinal Edema Active Dilaudid vomitting Active Bee Stings Anaphylaxis Active Chocolate hives Active Latex Hives Active 1Patient told to never to take [...] 01/19/22 15:30:00 EDT, Route to Pharmacy Electronically, [facility]/pharmacy #[id number], Partial fill upon patient reques... [...] 1 each, 4 Refills, Maintenance,01/19/22 15:15:00 EDT, [facility]/pharmacy #[id number], Partial fill upon patient request [...]
--- OUTSIDE RECORDS SUMMARY | 2023-04-05 09:03 | XMS_ITS | Continuity of Care Document ---
Author Name Unknown Organization [facility] Address [address] [place] [address]- Care Team Providers Care Science Professor Name Role Phone Anita Tee Primary Care Physician [phone] Encounter [facility] Date(s): 06/29/22 - 07/29/22 [facility] [address] [place] [address]- Attending Physician: Alex Liu Admitting Physician: Alex Liu Referring Physician: AdmtrAlex Allergies, Adverse Reactions, Alerts Substance Reaction Severity [...] Maintenance, use overnight and naps Supplies from [facility], 06/29/22 14:32:00 EDT, Compound Start Date: 06/29/22 [...] Maintenance, 11/03/18 19:11:05 EST, REC Powder, [id number] Start Date: 11/03/18 Status: Ordered Diflucan 150 [...] 1 each, 4 Refills, Maintenance,01/19/22 15:15:00 EDT, [facility]/pharmacy #[id number], Partial fill upon patient request [...] kit, 0 Refills, Maintenance, 03/17/22 7:32:00 EDT, [id number], Partial fill upon patient request if [...] on: 10/04/18 Sex Patient Care team information Personnel Name: Anita Tee Address: Address: [address] [place] [address]
--- OUTSIDE RECORDS SUMMARY | 2023-04-05 09:03 | XMS_ITS | Continuity of Care Document ---
Author Name Unknown Organization [facility] Address [address] [place] [address]- Care Team Providers Care Customer Service Trainer Name Role Phone Anita Tee Primary Care Physician Encounter [facility] Date(s): 01/19/22 - 02/18/22 [facility] [address] [place] [address]- Attending Physician: Alex Liu Admitting Physician: Alex [...] 01/19/22 15:30:00 EDT, Route to Pharmacy Electronically, [facility]/pharmacy #[id number], Partial fill upon patient reques... Start [...] 1 each, 4 Refills, Maintenance,01/19/22 15:15:00 EDT, [facility]/pharmacy #[id number], Partial fill upon patient request if [...]
--- OUTSIDE RECORDS SUMMARY | 2023-04-05 09:03 | XMS_ITS | Continuity of Care Document ---
Author Name Unknown Organization [facility] [place] Address [address] [place] [address]- Care Team Providers Care Principal Bioinformatics Specialist Name Role Phone Anita Tee Primary Care Physician Encounter [facility] Date(s): 03/16/22 - 04/15/22 [facility] [place] [address] [place] [address]- Allergies, Adverse Reactions, Alerts Substance Reaction Severity [...] 15:30:00 EDT, Route to Pharmacy Electronically, [facility]/pharmacy #[id number], Partial fill upon patient reques... Start [...] each, 4 Refills, Maintenance,01/19/22 15:15:00 EDT, [facility]/pharmacy #[id number], Partial fill upon patient request [...]
--- NOTE | 2023-04-05 09:04 | AM.OFFWIN_ITS ---
Intake Vital Signs 04/05/23 09:10 BP 122/80 Blood Pressure Location Rt brachial Position Sitting Pulse 62 Pulse Source Pulse Oximeter Pulse Oximetry (%) 98 Oxygen Delivery Method Room Air Intake Visit Reasons: EGG SMELLER, Right Eye Redness, Swelling, Itchiness Intake Note: Patient here for right eye redness, yesterday it started with a tearing eye and then early in the morning she woke up with eye crusted and closed shut and the other eye is starting to feel about the same. Patient Tobacco Use Status: Never used Tobacco Allergies lisinopril Adverse Reaction (Mild, Verified 04/05/23 09:08) Gastrointestinal Upset Do you need a note to return to daycare/school/sports/work: Yes HPI HPI Comments History of Present Illness Details 57-year-old female presents with 2 days of right eye discomfort, burning, redness, thick purulent discharge worse in the morning , she feels like it is now going into her left eye. Patient reports she went swimming in the ocean she thinks this could of made it worse. Not a contact lens wearer. Denies headache, vision changes, dizziness, fevers, chills, nausea, vomiting, chest pain, shortness of breath. Denies recent illness. Physical exam with right conjunctival injection. extraocular movements intact and pain-free. Normal vision. Likely bacterial conjunctivitis versus viral versus allergic however most likely bacterial. No signs of periorbital or orbital cellulitis. No signs of closed angle glaucoma wet macular degeneration. Plan erythromycin. Educated patient on diagnosis and treatment plan, answered all question, patient verbalizes understanding. At this time patient will be discharged home, advised to return with new or worsening symptoms. Educated on worrisome signs and symptoms and when to return. At this time I feel comfortable discharge home. [facility] Social History Patient Tobacco Use Status: Never used Tobacco Review of Systems Const Details: Constitutional : No Weight loss, No Fever, No Chills, No Fatigue, No Malaise ENT/Mouth : No sore throat, No Rhinorrhea Eyes: No Eye Pain, No Swelling, + Redness Cardiovascular : No Chest Pain, No SOB, No Dyspnea on Exertion, No Orthopnea, No Edema, No Palpitations Respiratory : No Cough, No Sputum, No Wheezing Gastrointestinal : No Nausea, No Vomiting, No Diarrhea, No Constipation, No abdominal Pain, No Hematochezia, No Melena Genitourinary : No Dysuria, No Urinary Frequency, No Hematuria, Musculoskeletal : No joint pain, No Myalgias, No Joint Swelling Skin : No Skin Lesions, No rash Neuro : No Weakness, No Numbness, No Dizziness, No Headache Psych : No Anxiety/Panic, No Depression All other systems reviewed and are negative All systems reviewed & are unremarkable except as noted in HPI and below Physical Exam Vital Signs: Last Vital Signs Pulse 62 04/05/23 09:10 BP 122/80 04/05/23 09:10 Pulse Ox 98 04/05/23 09:10 Oxygen Delivery Method Room Air 04/05/23 09:10 vss Appearance: Alert.? Oriented X3.? No acute distress.? Head: Normocephalic, atraumatic, no step-offs or deformities Eyes: Pupils equal, round and reactive to light.? ENT: Pharynx normal.?+ Right-sided conjunctival injection. Normal left eye. Extraocular movements intact and pain-free no periorbital cellulitis Neck: Normal inspection.? Neck supple.? CVS: Normal heart rate and rhythm.? Pulses normal.? Respiratory: No respiratory distress.? Breath sounds normal.? Abdomen: Soft and nontender.? Skin: Skin warm and dry.? Normal skin color.? Normal skin turgor.? Extremities: No lower extremity edema.? No calf ttp. 5/5 strength to bilateral upper and lower extremities Back: No midline tenderness, no C-spine tenderness, full range of motion, no CVA tenderness bilaterally Neuro: Oriented X 3.? No motor deficit.? No sensory deficit. CN 2-12 intact Assessment & Plan Assessment & Plan (1) Bacterial conjunctivitis: Code(s): H10.9 - Unspecified conjunctivitis Plan Take your medications as prescribed. If you were prescribed antibiotics today, it is important that you take your medication to their entirety, do not skip any doses, do not finish them early. Follow-up with your primary care provider this week. Return to the emergency department with new or worsening symptoms. Such as fevers, chills, chest pain, shortness of breath, nausea, vomiting, dizziness, headache, vision changes, lethargy In case of emergency call 911 Medications: New erythromycin 0.5 inches ophthalmic (eye) BID 3.5 grams 0RF 7 days Coding Level of Care Code Est Pt Level 3 (70784) Diagnoses Bacterial conjunctivitis H10.9
[2023-04-05 09:10] VITALS: BP 122/80; PULSE 62; O2SAT 98
== END 2023-04-05 09:38 | disposition home or self-care (01) ==
PROVIDERS: PCP Physician Assistant; Visit Provider Physician Assistant
DX: H10.9 Unspecified conjunctivitis (principal)
CPT/HCPCS: 99213

== ENCOUNTER 2023-05-17 07:27 | Outpatient (REF) | payer OTHER, SELFPAY ==
[2023-05-17 08:36] LABS: MANUAL DIFF FLAG NO
[2023-05-17 08:41] LABS: Basophils Absolute Auto 0.1 X10*3/uL (0.0-0.2); Basophils Percent Auto 0.9 % (0-2); Eosinophils Absolute Auto 0.1 X10*3/uL (0.0-0.4); Eosinophils Percent Auto 1.9 % (0-4); Hematocrit 39.2 % (37.0-47.0); Hemoglobin 12.9 g/dl (12.0-16.0); Imm Gran Abs Auto 0.02 X10*3/uL (0.00-0.03); Imm Gran Pct Auto 0.4 % (0.0-0.4); Lymphocytes Absolute Auto 1.9 X10*3/uL (1.2-4.9); Lymphocytes Percent Auto 33.8 % (20-40); Mean Corpuscular HGB Conc 32.9 g/dl (31.0-35.0); Mean Corpuscular Hemoglobin 31.3 pg (27.0-33.0); Mean Corpuscular Volume 95.1 fL (80.0-98.0); Mean Platelet Volume 9.7 fL (9.4-12.3); Monocytes Absolute Auto 0.5 X10*3/uL (0.1-1.2); Neutrophils Absolute Auto 3.1 x10*3/uL (2.0-8.3); Platelet Count 293 X10*3/uL (160-400); Red Blood Count 4.12 X10*6/uL (4.20-5.50); Red Cell Distribution Width 11.7 % (11.0-16.0); White Blood Count 5.7 X10*3/uL (4.8-10.8)
[2023-05-17 08:48] LABS: Alanine Aminotransferase 17 U/L (0-31); Albumin Level 4.3 g/dL (3.5-5.0); Alkaline Phosphatase 77 U/L (39-117); Amylase 45 U/L (28-100); Anion Gap 11 (12-20); Aspartate Amino Transferase 21 U/L (5-31); Bilirubin Total 0.5 mg/dL (0.0-1.0); Blood Urea Nitrogen 11 mg/dL (9-16); C Reactive Protein 0.11 mg/dL (< or = 0.50); Calcium 9.6 mg/dL (8.4-10.2); Carbon Dioxide 31 mmol/L (22-29); Chloride 100 mmol/L (96-108); Estimated Glomerular Filt Rate > 60; Glucose Random 83 mg/dL (60-115); Lipase 10 U/L (8-78); Potassium 4.7 mmol/L (3.3-5.1); Sodium 137 mmol/L (135-145); Total Protein 7.2 g/dL (6.5-8.0)
[2023-05-17 09:17] LABS: Erythrocyte Sedimentation Rate 8 MM/HR (0-20)
[2023-05-17 17:51] LABS: CDiff Gene PCR NEGATIVE (Negative)
[2023-05-18 12:43] LABS: Campylobacter Not Detected (Not Detect.); Plesiomonas shigelloides Not Detected (Not Detect.); Salmonella Not Detected (Not Detect.); Vibrio Not Detected (Not Detect.); Vibrio Cholerae Not Detected (Not Detect.); Yersinia enterocolitica Not Detected (Not Detect.)
[2023-05-18 12:44] LABS: Adenovirus F 40/41 Not Detected (Not Detect.); Astrovirus Not Detected (Not Detect.); Cryptosporidium Not Detected (Not Detect.); Cyclospora cayetanensis Not Detected (Not Detect.); E. coli EAEC Not Detected (Not Detect.); E. coli EPEC Not Detected (Not Detect.); E. coli ETEC Not Detected (Not Detect.); E. coli STEC Not Detected (Not Detect.); Entamoeba histolytica Not Detected (Not Detect.); Giardia lamblia Not Detected (Not Detect.); Norovirus GI/GII Not Detected (Not Detect.); Rotavirus A Not Detected (Not Detect.); Sapovirus Not Detected (Not Detect.); Shigella sp./EIEC Not Detected (Not Detect.)
== END 2023-05-17 07:28 | disposition home or self-care (01) ==
LOC: HO.LAB 07:27
PROVIDERS: Visit Provider Physician Assistant
DX: R19.7 Diarrhea, unspecified (principal); R15.2 Fecal urgency
CPT/HCPCS: 36415; 80053; 82150; 83690; 85025; 85652; 86140; 87493; 87507

== ENCOUNTER 2023-05-24 09:23 | Outpatient (REF) | payer OTHER, SELFPAY ==
--- NOTE | ~2023-05-24 | CT_ITS ---
EXAMINATION: CT ABDOMEN AND PELVIS WITH CONTRAST CLINICAL INFORMATION: Fecal urgency. COMPARISON: None available. TECHNIQUE: Multidetector volumetric images were obtained from the superior aspect of the liver through the pubic symphysis following administration 85 mL of Omnipaque 350 intravenous contrast. Sagittal and coronal reformatted images were obtained on the technologist's workstation. Oral contrast: No This CT examination was performed using dose optimization techniques as appropriate, variously including the following: *Automated exposure control *Adjustment of mA and/or kV according to patient size (this includes techniques or standardized protocols for targeted exams where dose is matched to indication/reason for exam; i.e. extremities or head) *Use of iterative reconstruction technique DLP: 682 mGy-cm FINDINGS: LUNG BASES: The visualized lung bases are unremarkable. LIVER, GALLBLADDER, AND BILIARY TREE: The liver is normal in size and contour. Hepatic hemangiomas are likely present. Mild central biliary ductal dilatation is present. The gallbladder is surgically absent. PANCREAS: No ductal dilatation. SPLEEN: Not enlarged. ADRENAL GLANDS: No adrenal masses. KIDNEYS AND URETERS: The kidneys are symmetric in size and enhancement. No hydronephrosis or perinephric stranding. BLADDER: Unremarkable. GASTROINTESTINAL TRACT: Status post gastric bypass surgery. There are telescoping loops of small bowel in the central abdomen and left mid abdomen compatible intussusception. A definite lead point is not identified. No small bowel obstruction. ABDOMINAL WALL: No significant hernia is appreciated. LYMPH NODES: Subcentimeter mesenteric lymph nodes. VASCULAR: Normal caliber abdominal aorta. PELVIC VISCERA: Uterus is surgically absent. OSSEOUS STRUCTURES: No destructive bone lesions. CT/CT abdomen pelvis w IV con IMPRESSION: Small bowel intussusception without evidence of small bowel obstruction. Short interval follow-up is recommended Hepatic hemangiomas are suspected.
[2023-05-24] MEDS: iohexoL 350 MG/ML 100 ML INFUS..BTL 85 ML IV (13:11)
== END 2023-05-24 09:24 | disposition home or self-care (01) ==
LOC: HO.CT 09:23
PROVIDERS: PCP Physician Assistant; Visit Provider Family Medicine
DX: R15.2 Fecal urgency (principal); R19.7 Diarrhea, unspecified
CPT/HCPCS: 74177; Q9967

== ENCOUNTER 2023-06-07 08:30 | Outpatient (REF) | payer OTHER, SELFPAY | END 2023-06-07 08:31 | disposition home or self-care (01) | LOC: HO.LAB 08:30 | PROVIDERS: Visit Provider Physician Assistant | DX: Z13.89 Encounter for screening for other disorder (principal) ==

== ENCOUNTER 2023-06-14 11:32 | Outpatient (REF) | payer OTHER, SELFPAY ==
[2023-06-14 13:42] LABS: Alanine Aminotransferase 40 U/L (0-31); Albumin Level 4.4 g/dL (3.5-5.0); Alkaline Phosphatase 103 U/L (39-117); Anion Gap 12 (12-20); Aspartate Amino Transferase 17 U/L (5-31); Bilirubin Total 0.3 mg/dL (0.0-1.0); Blood Urea Nitrogen 10 mg/dL (9-16); Calcium 9.6 mg/dL (8.4-10.2); Carbon Dioxide 32 mmol/L (22-29); Chloride 101 mmol/L (96-108); Estimated Glomerular Filt Rate > 60; Glucose Random 126 mg/dL (60-115); Potassium 4.3 mmol/L (3.3-5.1); Sodium 141 mmol/L (135-145); Total Protein 7.2 g/dL (6.5-8.0)
== END 2023-06-14 11:33 | disposition home or self-care (01) ==
LOC: HO.LAB 11:32
PROVIDERS: Visit Provider Physician Assistant
DX: R10.11 Right upper quadrant pain (principal)
CPT/HCPCS: 36415; 80053